=== PATIENT | female | born 1995 | race Two or more races ===

== ENCOUNTER 2017-10-06 08:59 | Emergency (ER) | payer MEDICAID ==
[~2017-10-06] VITALS: Ht 154.9 cm; Wt 54.4 kg
[2017-10-06 09:07] VITALS: BP 123/79
[2017-10-06 09:27] LABS: Urine Bacteria NONE SEEN /hpf (None Seen); Urine Blood Negative /uL (Negative); Urine Mucus FEW (None Seen); Urine Specific Gravity 1.013 (1.001-1.035); Urine WBC 2 /hpf (0 - 5)
== END 2017-10-06 12:48 | disposition home or self-care (01) ==
LOC: ER 08:59
DX: J35.1 Hypertrophy of tonsils (principal)
CPT/HCPCS: 81001; 81025

== ENCOUNTER 2023-08-05 04:19 | Emergency (ER) | payer MEDICAID ==
[~2023-08-05] VITALS: Ht 152.4 cm; Wt 59.3 kg
[2023-08-05 07:43] LABS: Urine Bacteria NONE SEEN /hpf (None Seen); Urine Blood Negative /uL (Negative); Urine Clarity Clear (Clear); Urine Color Yellow (Yellow); Urine Mucus FEW (None Seen); Urine Protein, UAD Negative (Negative); Urine Specific Gravity 1.017 (1.001-1.035); Urine Urobilinogen Normal (Negative); Urine WBC 11 /hpf (0 - 5); Urine pH 6.5 (5.0-8.0)
[2023-08-05] MEDS ORDERED: ONDANSETRON ODT 4 MG TAB PO ONE (07:45)
[2023-08-05] MEDS ORDERED: KETOROLAC TROMETH 60MG/2ML VIAL IM ONE (07:45)
[2023-08-05 08:57] LABS: Basophils # (auto) 0.1 10 ^3/uL (0-0.2); Basophils % (auto) 0.5 % (0.0-2.0); Eosinophils # (auto) 0 10 ^3/uL (0-0.8); Eosinophils % (auto) 0.2 % (0.0-7.0); Hematocrit 40.4 % (36.0-46.0); Hemoglobin 13.3 g/dL (12.2-16.2); Lymphocytes # (auto) 1.7 10 ^3/uL (0.4-5.4); Lymphocytes % (auto) 11.2 % (10.0-50.0); Mean Corpuscular Hemoglobin 29.4 pg (28.0-32.0); Mean Corpuscular Hgb Conc. 32.8 g/dL (32.0-36.0); Mean Corpuscular Volume 89.6 fL (80.0-100.0); Monocytes # (auto) 0.7 10 ^3/uL (0-1.3); Monocytes % (auto) 4.7 % (0.0-12.0); Neutrophils # (auto) 12.8 10 ^3/uL (1.6-8.6); Neutrophils % (auto) 83.4 % (37.0-80.0); Nucleated Red Blood Cells % 0.1 %; Red Blood Cells 4.51 10^6/uL (4.0-5.20); Red Cell Distribution Width 14.8 % (11.8-14.3); White Blood Cell 15.4 10^3/uL (4.4-10.8)
[2023-08-05 09:16] LABS: Alanine Aminotransferase 12 U/L (7-40); Albumin 4.7 g/dL (3.2-4.8); Alkaline Phosphatase 69 U/L (46-116); Anion Gap 6 (5-15); Aspartate Aminotransferase 11 U/L (13-40); Bilirubin, Total 0.7 mg/dL (0.2-1.0); Calcium 9.1 mg/dL (8.7-10.4); Carbon Dioxide 25 mmol/L (20-30); Chloride 106 mmol/L (98-107); Glucose 98 mg/dL (74-106); Lipase 28 U/L (12-53); Sodium 137 mmol/L (136-145); Total Protein 7.4 g/dL (5.7-8.2)
[2023-08-05 09:18] LABS: BUN/Creatinine Ratio 8.2 (10.0-20.0); Blood Urea Nitrogen < 5 mg/dL (9-23)
[2023-08-05] MEDS ORDERED: CIPR-173 PO (09:28)
[2023-08-05] MEDS ORDERED: METR-344 PO (09:28)
[2023-08-05] MEDS ORDERED: ZOFR4T PO (09:28)
[2023-08-05] MEDS ORDERED: CIPROFLOXACIN HCL 500 MG TAB PO ONE (09:30)
[2023-08-05] MEDS ORDERED: metroNIDAZOLE 500 MG TAB PO ONE (09:30)
[2023-08-05 09:36] VITALS: BP 130/74; PULSE 82; RESP 18; TEMP 97.2; O2SAT 100
== END 2023-08-05 09:54 | disposition home or self-care (01) ==
LOC: ER 04:19
DX: K57.32 Diverticulitis of large intestine without perforation or abscess without bleeding (principal); D72.829 Elevated white blood cell count, unspecified; R00.0 Tachycardia, unspecified
CPT/HCPCS: 36415; 74176; 76830; 76856; 80053; 81001; 81025; 83690; 85025; 96372; 99285; J1885; Q0162